=== PATIENT | female | born 1950 | race Caucasian/White ===

== ENCOUNTER 2021-09-17 05:37 | Day surgery (SDC) | payer MEDICARE, BC ==
[2021-09-17 06:27] LABS: CORONAVIRUS COVID-19 NAA NEGATIVE (NEGATIVE)
[2021-09-17] MEDS ORDERED: Bupivacaine 0.5% 50 ML MDV ONE (06:38)
[2021-09-17] MEDS: Nozin Nasal Sanitizer NASBOTH SCH ×2 (06:40→20:10)
[2021-09-17] MEDS ORDERED: Lactated Ringers 1,000 ML IV SCH (07:00)
[2021-09-17] MEDS ORDERED: fentaNYL 100 MCG/2 ML SDV ONE ×2 (07:16→08:56)
[2021-09-17] MEDS ORDERED: Propofol 200 MG/20 ML SDV ONE ×2 (07:16→08:58)
[2021-09-17] MEDS ORDERED: Midazolam 1 MG/ML 2 ML SDV ONE (07:16)
[2021-09-17] MEDS ORDERED: ceFAZolin 2 GM in Premix Bag 1 BAG IV ONE (07:30)
[2021-09-17] MEDS ORDERED: Tranexamic Acid 1,000 MG in Sodium Chloride 0.9% 50 ML IV ONE (07:45)
[2021-09-17] MEDS ORDERED: Sodium Chloride 0.9% 10 ML ONE (08:12)
[2021-09-17] MEDS ORDERED: ePHEDrine 50 MG/ML SDV ONE (08:12)
[2021-09-17] MEDS ORDERED: Lactated Ringers 1,000 ML ONE (08:14)
[2021-09-17] MEDS ORDERED: Ondansetron 4 MG/2 ML SDV IVPUSH PRN (09:48)
[2021-09-17] MEDS ORDERED: traMADol 50 MG Tab PO PRN (09:48)
[2021-09-17] MEDS ORDERED: oxyCODONE 5 MG Tab PO PRN (09:52)
[2021-09-17] MEDS ORDERED: HYDROmorphone 0.5 MG/0.5 ML Syringe IVPUSH PRN (09:53)
[2021-09-17] MEDS ORDERED: Ketorolac 30 MG/ML SDV IVPUSH SCH (10:00)
[2021-09-17] MEDS ORDERED: Acetaminophen 325 MG Tab PO SCH (10:00)
[2021-09-17] MEDS ORDERED: ceFAZolin 1 GM in Sodium Chloride 0.9% 50 ML IV SCH (10:00)
[2021-09-17] MEDS: Sodium Chloride 0.9% 1,000 ML IV SCH ×2 (11:12→19:50)
[2021-09-17] MEDS: Ketorolac 30 MG/ML SDV IVPUSH SCH ×2 (12:29→20:10)
[2021-09-17] MEDS: Acetaminophen 325 MG Tab PO SCH ×2 (12:30→17:11)
[2021-09-17] MEDS: ceFAZolin 1 GM in Premix Bag 1 BAG IV SCH ×2 (13:59→21:52)
[2021-09-17] MEDS: Docusate Sodium 100 MG Cap PO SCH (20:11)
[2021-09-17] MEDS ORDERED: Nozin Nasal Sanitizer NASBOTH SCH (21:00)
[2021-09-17] MEDS ORDERED: Gabapentin 100 MG Cap PO SCH ×2 (21:00)
[2021-09-17] MEDS ORDERED: Non-Formulary Medication 1 Each (Atorvastatin [Lipitor] 40 MG Tablet) PO SCH (21:00)
[2021-09-17] MEDS ORDERED: Docusate Sodium 100 MG Cap PO SCH (21:00)
[2021-09-17] MEDS ORDERED: atorvaSTATin 20 MG Tab PO SCH (21:00)
[2021-09-18] MEDS: Acetaminophen 325 MG Tab PO SCH ×3 (00:31→11:14)
[2021-09-18] MEDS: ceFAZolin 1 GM in Premix Bag 1 BAG IV SCH (05:40)
[2021-09-18] MEDS: Docusate Sodium 100 MG Cap PO SCH (08:52)
[2021-09-18] MEDS: Nozin Nasal Sanitizer NASBOTH SCH (08:52)
[2021-09-18] MEDS ORDERED: Celecoxib 200 MG Cap PO SCH ×2 (09:00)
[2021-09-18] MEDS ORDERED: Venlafaxine 75 MG Tab PO SCH (09:00)
[2021-09-18] MEDS ORDERED: Non-Formulary Medication 1 Each (Venlafaxine [Effexor] 37.5 MG Tablet) PO SCH (09:00)
[2021-09-18] MEDS ORDERED: Enoxaparin 30 MG/0.3 ML Syringe SUBCUT SCH ×2 (09:00)
== END 2021-09-18 13:40 | disposition home or self-care (01) ==
LOC: JP.SDS 05:37 → JP.SDSSCHI 05:37 → UNDOADMIN 05:37 → EDSTATUS 09:30 → JP.MS 09:48 → JP.SDSSCHI 09:48 → UNDOADMIN 09:48 → JP.MS 09:48 → UNDODISIN 09-18 13:40 → JP.SDS 09-18 13:40
PROVIDERS: ATTEND Specialist
DX: M16.11 Unilateral primary osteoarthritis, right hip (principal); E78.00 Pure hypercholesterolemia, unspecified; G25.81 Restless legs syndrome; Z79.82 Long term (current) use of aspirin; Z79.899 Other long term (current) drug therapy; Z88.8 Allergy status to other drugs, medicaments and biological substances; Z91.012 Allergy to eggs; Z01.812 Encounter for preprocedural laboratory examination; Z20.822 Contact with and (suspected) exposure to COVID-19
CPT/HCPCS: 0241U; 36415; 72170; 72170-26; 80053; 85027; 97110-GP; 97116-GP; 97161-GP; A9270-GY; C1713; C1776; J0690; J1650; J1885; J2250; J2704; J3010; J3490; J7030; J7120

== ENCOUNTER 2022-02-05 12:22 | Emergency (ER) | payer MEDICARE, BC ==
[2022-02-05] MEDS ORDERED: Propofol 200 MG/20 ML SDV ONE (13:10)
== END 2022-02-05 13:47 | disposition home or self-care (01) ==
LOC: JP.ED 12:22
DX: S73.004A Unspecified dislocation of right hip, initial encounter (principal); E78.00 Pure hypercholesterolemia, unspecified; Z91.012 Allergy to eggs; Z91.048 Other nonmedicinal substance allergy status; Z88.8 Allergy status to other drugs, medicaments and biological substances; Z79.82 Long term (current) use of aspirin; X50.1XXA Overexertion from prolonged static or awkward postures, initial encounter
CPT/HCPCS: 27265; 73501-26-RT; 73501-RT; 99283-25; J2704

== ENCOUNTER 2023-01-01 07:03 | Day surgery (SDC) | payer MEDICARE, BC ==
[~2023-01-01 07:03] MED LIST: Bupivacaine 0.5% 30 ML SDV ONE
[2023-01-01] MEDS ORDERED: Propofol 200 MG/20 ML SDV ONE (07:08)
[2023-01-01] MEDS ORDERED: Lidocaine 0.5% 50 ML SDV ONE (07:08)
[2023-01-01] MEDS ORDERED: fentaNYL 100 MCG/2 ML SDV ONE (07:08)
[2023-01-01] MEDS ORDERED: Midazolam 1 MG/ML 2 ML SDV ONE (07:08)
[2023-01-01 07:25] LABS: HEMOGLOBIN 12.8 g/dL (11.2-15.5); MEAN CORPUSCULAR HEMOGLOBIN 29.5 pg (31.6-35.5); MEAN CORPUSCULAR HGB CONC 33.7 g/dL (31.6-35.5); MEAN CORPUSCULAR VOLUME 87.6 fL (81.4-99.0); RED BLOOD CELL COUNT 4.34 M/uL (3.77-5.24); WHITE BLOOD CELL COUNT,WBC 6.2 K/uL (3.2-11.0)
[2023-01-01 07:40] LABS: CALCIUM 9.3 mg/dL (8.5-10.1); CREATININE 0.8 mg/dL (0.6-1.0); EST CRCL DRUG DOSING (CG) 58.88 mL/min; POTASSIUM,K 3.9 mmol/L (3.6-5.2)
[2023-01-01] MEDS ORDERED: Nozin Nasal Sanitizer NASBOTH ONE (08:00)
[2023-01-01] MEDS ORDERED: Lactated Ringers 1,000 ML IV SCH (08:00)
[2023-01-01 08:05] LABS: ANION GAP 11.9 mmol/L (5.0-14.0)
[2023-01-01] MEDS ORDERED: ceFAZolin 1 GM in Premix Bag 1 BAG IV ONE (08:30)
== END 2023-01-01 10:16 | disposition home or self-care (01) ==
LOC: JP.SDS 07:03
PROVIDERS: ATTEND Specialist
DX: G56.01 Carpal tunnel syndrome, right upper limb (principal); E78.5 Hyperlipidemia, unspecified; E66.9 Obesity, unspecified; Z91.012 Allergy to eggs; Z88.8 Allergy status to other drugs, medicaments and biological substances
CPT/HCPCS: 36415; 64721; 80048; 85027; A9270; J0690; J2250; J2704; J3010; J3490; J7120

== ENCOUNTER 2023-01-22 06:29 | Day surgery (SDC) | payer MEDICARE, BC ==
[2023-01-22] MEDS ORDERED: Bupivacaine 0.5% 30 ML SDV ONE (06:57)
[2023-01-22] MEDS ORDERED: Nozin Nasal Sanitizer NASBOTH ONE (07:00)
[2023-01-22] MEDS ORDERED: Lactated Ringers 1,000 ML IV SCH (07:00)
[2023-01-22] MEDS ORDERED: ceFAZolin 1 GM in Premix Bag 1 BAG IV ONE (07:00)
[2023-01-22 07:15] LABS: HEMOGLOBIN 12.2 g/dL (11.2-15.5); MEAN CORPUSCULAR HEMOGLOBIN 30.1 pg (31.6-35.5); MEAN CORPUSCULAR HGB CONC 33.9 g/dL (31.6-35.5); MEAN CORPUSCULAR VOLUME 88.9 fL (81.4-99.0); RED BLOOD CELL COUNT 4.05 M/uL (3.77-5.24); WHITE BLOOD CELL COUNT,WBC 6.8 K/uL (3.2-11.0)
[2023-01-22] MEDS ORDERED: Lidocaine 0.5% 50 ML SDV ONE (07:26)
[2023-01-22] MEDS ORDERED: Propofol 200 MG/20 ML SDV ONE (07:27)
[2023-01-22] MEDS ORDERED: fentaNYL 100 MCG/2 ML SDV ONE ×2 (07:27→07:59)
[2023-01-22] MEDS ORDERED: Midazolam 1 MG/ML 2 ML SDV ONE (07:27)
[2023-01-22 07:33] LABS: ANION GAP 7.5 mmol/L (5.0-14.0); CALCIUM 9.2 mg/dL (8.5-10.1); CREATININE 0.7 mg/dL (0.6-1.0); EST CRCL DRUG DOSING (CG) 65.93 mL/min; POTASSIUM,K 4.3 mmol/L (3.6-5.2)
== END 2023-01-22 11:07 | disposition home or self-care (01) ==
LOC: JP.SDS 06:29
PROVIDERS: ATTEND Specialist
DX: G56.02 Carpal tunnel syndrome, left upper limb (principal); M65.832 Other synovitis and tenosynovitis, left forearm; E78.00 Pure hypercholesterolemia, unspecified; Z91.048 Other nonmedicinal substance allergy status
CPT/HCPCS: 36415; 64721; 80048; 85027; A9270; J0690; J2250; J2704; J3010; J3490; J7120

== ENCOUNTER 2023-11-19 21:57 | Emergency (ER) | payer MEDICARE, BC ==
[2023-11-19] MEDS ORDERED: Naloxone 0.4 MG/ML SDV IVPUSH PRN (22:47)
[2023-11-19] MEDS: Ondansetron 4 MG/2 ML SDV IVPUSH ONE (22:51)
[2023-11-19] MEDS: HYDROmorphone 0.5 MG/0.5 ML Syringe IVPUSH ONE (22:51)
[2023-11-19] MEDS: Sodium Chloride 0.9% 1,000 ML IV ONE (23:27)
[2023-11-19] MEDS ORDERED: Propofol 200 MG/20 ML SDV ONE (23:41)
[2023-11-20] MEDS ORDERED: Propofol 200 MG/20 ML SDV ONE
== END 2023-11-20 01:00 | disposition home or self-care (01) ==
LOC: JP.ED 21:57
DX: S73.004A Unspecified dislocation of right hip, initial encounter (principal); M19.90 Unspecified osteoarthritis, unspecified site; E78.00 Pure hypercholesterolemia, unspecified; Z91.012 Allergy to eggs; Z88.8 Allergy status to other drugs, medicaments and biological substances; Z91.048 Other nonmedicinal substance allergy status; Z79.82 Long term (current) use of aspirin; Z79.899 Other long term (current) drug therapy; Z90.49 Acquired absence of other specified parts of digestive tract; X50.1XXA Overexertion from prolonged static or awkward postures, initial encounter
CPT/HCPCS: 27250; 73501-26-RT; 73501-RT; 96361; 96374; 96375; 99152; 99153; 99156; 99157; 99283; 99284-25; J1170; J2405; J2704; J7030

== ENCOUNTER 2023-12-15 09:29 | Day surgery (SDC) | payer MEDICARE, BC ==
[~2023-12-15 09:29] MED LIST changes: -Bupivacaine 0.5% 30 ML SDV ONE; +Midazolam 1 MG/ML 2 ML SDV ONE; +Propofol 200 MG/20 ML SDV ONE; +fentaNYL 100 MCG/2 ML SDV ONE
[2023-12-15 09:52] LABS: BASOPHILS ABSOLUTE AUTO 0.08 K/uL (0.00-0.10); BASOPHILS PERCENT AUTO 1.2 % (0.1-1.3); EOSINOPHILS ABSOLUTE AUTO 0.32 K/uL (0.00-0.40); EOSINOPHILS PERCENT AUTO 4.7 % (0.0-5.4); HEMOGLOBIN 13.1 g/dL (11.2-15.5); IMMATURE GRAN PERCENT AUTO 0.3 % (0.0-0.7); LYMPHOCYTES ABSOLUTE AUTO 2.44 K/uL (0.8-3.3); LYMPHOCYTES PERCENT AUTO 36.2 % (11.4-47.7); MEAN CORPUSCULAR HEMOGLOBIN 29.6 pg (31.6-35.5); MEAN CORPUSCULAR HGB CONC 33.6 g/dL (31.6-35.5); MONOCYTES ABSOLUTE AUTO 0.71 K/uL (0.20-0.90); MONOCYTES PERCENT AUTO 10.5 % (3.3-12.6); NEUTROPHILS ABSOLUTE AUTO 3.17 K/uL (1.0-7.6); NEUTROPHILS PERCENT AUTO 47.1 % (40.0-78.1); PLATELET COUNT,PLT 283 K/uL (130-375); RED BLOOD CELL COUNT 4.43 M/uL (3.77-5.24); WHITE BLOOD CELL COUNT,WBC 6.7 K/uL (3.2-11.0)
[2023-12-15 09:53] LABS: IMMATURE GRAN ABSOLUTE AUTO 0.02 K/uL (0.00-0.23)
[2023-12-15] MEDS: Nozin Nasal Sanitizer NASBOTH ONE (10:07)
[2023-12-15 10:11] LABS: A/G RATIO 0.9 (1.2-2.2); ALANINE AMINOTRANSFERASE,ALT 29 U/L (12-78); ALKALINE PHOSPHATASE 101 U/L (46-116); ANION GAP 10.6 mmol/L (5.0-14.0); ASPARTATE AMNIOTRANSFERASE,AST 20 U/L (15-37); BILIRUBIN TOTAL 0.6 mg/dL (0.2-1.0); BLOOD UREA NITROGEN,BUN 19 mg/dL (7-18); CALCIUM 9.5 mg/dL (8.5-10.1); CARBON DIOXIDE,CO2 27 mmol/L (21-32); CHLORIDE,CL 102 mmol/L (100-108); CREATININE 0.9 mg/dL (0.6-1.0); EST CRCL DRUG DOSING (CG) 51.59 mL/min; ESTIMATED GFR 68 mL/min (>60); GLUCOSE RANDOM 109 mg/dL (74-106); POTASSIUM,K 4.4 mmol/L (3.6-5.2); PROTEIN TOTAL,TP 8.3 g/dL (6.4-8.2); SODIUM,NA 140 mmol/L (140-148)
[2023-12-15] MEDS: Lactated Ringers 1,000 ML IV SCH (10:38)
[2023-12-15] MEDS: Bupivacaine 0.5% 50 ML MDV ONE (10:43)
[2023-12-15] MEDS: ceFAZolin 2 GM in Premix Bag 1 BAG IV ONE (11:31)
[2023-12-15] MEDS ORDERED: Docusate Sodium 100 MG Cap PO PRN (12:00)
[2023-12-15] MEDS ORDERED: oxyCODONE 5 MG Tab PO PRN (12:00)
[2023-12-15] MEDS ORDERED: ceFAZolin 2 GM in Sodium Chloride 0.9% 50 ML IV SCH (12:00)
[2023-12-15] MEDS ORDERED: Ketorolac 15 MG/ML SDV IVPUSH PRN (12:00)
[2023-12-15] MEDS ORDERED: Ondansetron 4 MG/2 ML SDV IVPUSH PRN (12:00)
[2023-12-15] MEDS ORDERED: Propofol 200 MG/20 ML SDV ONE (12:04)
[2023-12-15] MEDS ORDERED: Sodium Chloride 0.9% 10 ML ONE (12:56)
[2023-12-15] MEDS ORDERED: Lidocaine 1% with EPINEPHrine 1:100,000 50 ML MDV ONE (12:56)
[2023-12-15] MEDS ORDERED: ePHEDrine 50 MG/ML SDV ONE (13:02)
[2023-12-15] MEDS ORDERED: fentaNYL 100 MCG/2 ML SDV ONE (13:16)
[2023-12-15] MEDS: oxyCODONE 5 MG Tab PO PRN (16:19)
[2023-12-15] MEDS: Acetaminophen 325 MG Tab PO SCH (16:19)
[2023-12-15] MEDS: ceFAZolin 2 GM in Premix Bag 1 BAG IV SCH (17:52)
[2023-12-15] MEDS ORDERED: Non-Formulary Medication 1 Each (Atorvastatin [Lipitor] 40 MG Tablet) PO SCH (21:00)
[2023-12-15] MEDS: Nozin Nasal Sanitizer NASBOTH SCH (21:53)
[2023-12-15] MEDS: atorvaSTATin 20 MG Tab PO SCH (21:53)
[2023-12-15] MEDS: Sodium Chloride 0.9% 1,000 ML IV SCH (21:53)
[2023-12-16 05:16] LABS: HEMATOCRIT 32.1 % (34.3-46.0); HEMOGLOBIN 10.9 g/dL (11.2-15.5); MEAN CORPUSCULAR HEMOGLOBIN 29.6 pg (31.6-35.5); MEAN CORPUSCULAR VOLUME 87.2 fL (81.4-99.0); RED BLOOD CELL COUNT 3.68 M/uL (3.77-5.24); WHITE BLOOD CELL COUNT,WBC 7.3 K/uL (3.2-11.0)
[2023-12-16] MEDS: Pantoprazole 40 MG Tab.CR PO SCH (07:25)
[2023-12-16] MEDS: Venlafaxine 75 MG Tab PO SCH (08:27)
[2023-12-16] MEDS: Cholecalciferol (Vitamin D3) 25 MCG Tab PO SCH (08:27)
[2023-12-16] MEDS: Aspirin 325 MG Tab.EC PO SCH (08:27)
[2023-12-16] MEDS: Multivitamins with Iron/Calcium/Folic Acid/Minerals Tab PO SCH (08:27)
[2023-12-16] MEDS: Ferrous Sulfate 325 MG Tab PO SCH (08:28)
[2023-12-16] MEDS ORDERED: MSM PO SCH (09:00)
[2023-12-16] MEDS ORDERED: Non-Formulary Medication 1 Each (Venlafaxine [Effexor] 37.5 MG Tablet) PO SCH (09:00)
[2023-12-16] MEDS ORDERED: [UNRECOGNIZED DRUG - OTHER] PO SCH (09:00)
[2023-12-16] MEDS ORDERED: CHONDROITIN A PO SCH (09:00)
[2023-12-16] MEDS ORDERED: VIT C PO SCH (09:00)
[2023-12-16] MEDS ORDERED: Non-Formulary Medication 1 Each (Multivitamin With Minerals [Multiple Vitamin] 1 EACH Tabl PO SCH (09:00)
[2023-12-16] MEDS ORDERED: Non-Formulary Medication 1 Each (Omeprazole Magnesium [Prilosec Otc] 20 MG Tablet.Dr) PO SCH (09:00)
[2023-12-16] MEDS ORDERED: GLUCOSAMINE PO SCH (09:00)
[2023-12-16] MEDS ORDERED: B12 PO SCH (09:00)
[2023-12-16] MEDS ORDERED: Non-Formulary Medication 1 Each (Cholecalciferol (Vitamin D3) [Vitamin D3] 125 MCG Tablet) PO SCH (09:00)
[2023-12-16] MEDS ORDERED: IRON BIS GLYCINAT PO SCH (09:00)
== END 2023-12-16 10:15 | disposition home or self-care (01) ==
LOC: JP.SDS 09:29 → JP.2SS 12:01 → JP.SDS 12-16 10:15
PROVIDERS: ATTEND Specialist
DX: M24.451 Recurrent dislocation, right hip (principal); K21.9 Gastro-esophageal reflux disease without esophagitis; Z98.890 Other specified postprocedural states; Z79.82 Long term (current) use of aspirin; Z79.899 Other long term (current) drug therapy
CPT/HCPCS: 01215; 27137; 36415; 76000; 80053; 85025; 85027; 97161; A9270; C1713; C1776; J0665; J0690; J2250; J2704; J3010; J3490; J7030; J7120